=== PATIENT | male | born 1970 | race Two or more races ===

== ENCOUNTER 2021-05-12 05:05 | Emergency (ER) | payer BC ==
[~2021-05-12] VITALS: Ht 182.9 cm; Wt 86.3 kg
[2021-05-12] MEDS ORDERED: IV NORMAL SALINE 1000ML BAG 1,000 ML IV ONE (06:15)
--- NOTE | 2021-05-12 06:17 | PHYS DOC ---
Adult General Chief Complaint Chief Complaint: URINARY RETENTION HPI HPI Patient is a 51 year old male presenting to the emergency department for inability to urinate for the past day. Patient says that he has no known kidney problems and he drank at least 10 glasses of water yesterday but there has been no urine output. Patient says that he has lower midline abdominal pain with some nausea but no fevers chills vomiting back pain or testicle pain. He denies getting started on any new medications including [id number] medications. Patient is in no acute distress with normal vital signs. Review of Systems Review of Systems Constitutional: Denies fever or chills [] Eyes: Denies change in visual acuity, redness, or eye pain [] HENT: Denies nasal congestion or sore throat [] Respiratory: Denies cough or shortness of breath [] Cardiovascular: No additional information not addressed in HPI [] GI: + abdominal pain, nausea. No vomiting, bloody stools or diarrhea [] : Decreased urine output Musculoskeletal: Denies back pain or joint pain [] Integument: Denies rash or skin lesions [] Neurologic: Denies headache, focal weakness or sensory changes [] All other systems were reviewed and found to be within normal limits, except as documented in this note. Current Medications Current Medications Current Medications Medications (Trade) Dose Ordered Sig/Felicitas Start Time Stop Time Status Last Admin Dose Admin Info (CONTRAST GIVEN -- Rx MONITORING) 1 each PRN DAILY PRN 05/12/21 07:15 05/14/21 07:14 Iohexol (Omnipaque 300 Mg/ml) 75 ml 1X ONCE 05/12/21 07:15 05/12/21 07:16 DC 05/12/21 07:23 75 ML Lorazepam (Ativan Inj) 1 mg 1X ONCE 05/12/21 08:45 05/12/21 08:50 DC 05/12/21 08:58 1 MG Magnesium Sulfate 50 ml @ 25 mls/hr 1X ONCE 05/12/21 07:00 05/12/21 08:59 DC 05/12/21 07:23 25 MLS/HR Morphine Sulfate (Morphine Sulfate) 4 mg STK-MED ONCE 05/12/21 06:50 05/12/21 06:51 DC Ondansetron HCl (Zofran) 4 mg 1X ONCE 05/12/21 08:45 05/12/21 08:50 DC 05/12/21 08:59 4 MG Potassium Chloride/Sodium Chloride 1,000 ml @ 250 mls/hr Q4H ONCE 05/12/21 07:00 05/12/21 10:59 05/12/21 07:27 250 MLS/HR Potassium Chloride (Klor-Con) 40 meq 1X ONCE 05/12/21 07:00 05/12/21 07:07 DC 05/12/21 07:22 40 MEQ Sodium Chloride 1,000 ml @ 1,000 mls/hr 1X ONCE 05/12/21 06:15 05/12/21 07:14 DC 05/12/21 06:15 1,000 MLS/HR Allergies Allergies Allergies Coded Allergies Type Severity Reaction Last Updated Verified No Known Drug Allergies 05/12/21 No Physical Exam Physical Exam Constitutional: Well developed, well nourished, no acute distress, non-toxic appearance. [] HENT: Normocephalic, atraumatic, bilateral external ears normal, oropharynx moist, no oral exudates, nose normal. [] Eyes: PERRLA, EOMI, conjunctiva normal, no discharge. [] Neck: Normal range of motion, no tenderness, supple, no stridor. [] Cardiovascular:Heart rate regular rhythm, no murmur [] Lungs & Thorax: Bilateral breath sounds clear to auscultation [] Abdomen: Bowel sounds normal, soft, + suprapubic tenderness, no rebound or guarding Skin: Warm, dry, no erythema, no rash. [] Back: No tenderness, no CVA tenderness. [] Extremities: No tenderness, no cyanosis, no clubbing, ROM intact, no edema. [] Neurologic: Alert and oriented X 3, normal motor function, normal sensory function, no focal deficits noted. [] Current Patient Data Vital Signs Vital Signs Date Time Temp Pulse Resp B/P (MAP) Pulse Ox O2 Delivery O2 Flow Rate FiO2 05/12/21 08:59 18 95 05/12/21 08:20 85 196/93 (127) Room Air 05/12/21 05:15 98.1 98.1 Lab Values Laboratory Tests Test 05/12/21 05:55 05/12/21 07:44 White Blood Count 3.1 x10^3/uL (4.0-11.0) L Red Blood Count 4.83 x10^6/uL (4.30-5.70) Hemoglobin 15.0 g/dL (13.0-17.5) Hematocrit 44.1 % (39.0-53.0) Mean Corpuscular Volume 91 fL (79-100) Mean Corpuscular Hemoglobin 31 pg (25-35) Mean Corpuscular Hemoglobin Concent 34 g/dL (31-37) Red Cell Distribution Width 14.2 % (11.5-14.5) Platelet Count 272 x10^3/uL (140-400) Neutrophils (%) (Auto) 65 % (31-73) Lymphocytes (%) (Auto) 23 % (24-48) L Monocytes (%) (Auto) 7 % (0-9) Eosinophils (%) (Auto) 3 % (0-3) Basophils (%) (Auto) 2 % (0-3) Neutrophils # (Auto) 2.0 x10^3/uL (1.8-7.7) Lymphocytes # (Auto) 0.7 x10^3/uL (1.0-4.8) L Monocytes # (Auto) 0.2 x10^3/uL (0.0-1.1) Eosinophils # (Auto) 0.1 x10^3/uL (0.0-0.7) Basophils # (Auto) 0.1 x10^3/uL (0.0-0.2) Sodium Level 142 mmol/L (136-145) Potassium Level 2.5 mmol/L (3.5-5.1) *L Chloride Level 100 mmol/L (98-107) Carbon Dioxide Level 32 mmol/L (21-32) Anion Gap 10 (6-14) Blood Urea Nitrogen 5 mg/dL (8-26) L Creatinine 0.8 mg/dL (0.7-1.3) Estimated GFR (Cockcroft-Gault) 101.5 BUN/Creatinine Ratio 6 (6-20) Glucose Level 110 mg/dL (70-99) H Calcium Level 8.5 mg/dL (8.5-10.1) Total Bilirubin 0.5 mg/dL (0.2-1.0) Aspartate Amino Transferase (AST) 223 U/L (15-37) H Alanine Aminotransferase (ALT) 133 U/L (16-63) H Alkaline Phosphatase 95 U/L (46-116) Total Protein 8.0 g/dL (6.4-8.2) Albumin 3.2 g/dL (3.4-5.0) L Albumin/Globulin Ratio 0.7 (1.0-1.7) L Ethyl Alcohol Level 60 mg/dL (0-10) H Urine Collection Type Void Urine Color (Auto) Light yellow Urine Turbidity Clear Urine pH (Auto) 7.5 (<5.0-8.0) Urine Specific [place] 1.025 (1.000-1.030) Urine Protein (Auto) Negative mg/dL (Negative) Urine Glucose (Auto)(UA) Negative mg/dL (Negative) Urine Ketones (Auto) Negative mg/dL (Negative) Urine Blood (Auto) Negative (Negative) Urine Nitrite Negative (Negative) Urine Bilirubin (Auto) Negative (Negative) Urine Urobilinogen (Auto) Normal mg/dL (Normal) Urine Leukocyte Esterase (Auto) Negative (Negative) Urine RBC Occ /HPF (0-2) Urine WBC Occ /HPF (0-4) Urine Squamous Epithelial Cells Few /LPF Urine Bacteria 0 /HPF (0-FEW) Laboratory Tests 05/12/21 05:55 Laboratory Tests 05/12/21 05:55 EKG EKG [] Radiology/Procedures Radiology/Procedures [] Course & Med Decision Making Course & Med Decision Making I will check labs urinalysis start with an ultrasound to see if there is retention and reassess. Ultrasound only showed 85 cc of urine so labs and urinalysis and CT were all ordered. Patient was given IV and oral fluids and he was able to urinate 350 cc of urine with no difficulty I suspect his inability to urinate was more dehydration and possibly alcohol related. CT showed no acute surgical pathology but I did tell him that he has an abnormal mesorectal lipomatosis and will require follow-up for this. He says that he does have a primary care provider who writes his hypertension medications and that he will follow with them to see if further surgical consultation is necessary. Patient's repeat abdominal exam is benign with no focal tenderness rebound or guarding. He does admit that he drinks at least 7 shots daily and his last drink was last night and that he is shaky with hypertension but no tachycardia at this time. He says he has not been taking his lisinopril hydrochlorothiazide for some time and he does not give a reason why is he says he is not out but he will resume taking it. I told him about the transaminitis likely from alcohol as well as hypokalemia which is likely poor diet intake. At home the hypokalemia is low enough that admission is warranted to continue trending his electrolytes and treated for withdrawal. Patient says that he has no interest in being admitted and is not interested in quitting alcohol and he is requesting to be discharged. Patient was willing to let me replace his electrolytes partially here I told him he needs to take in a high potassium and magnesium diet at home and to cut down and trying to quit the alcohol as it is likely contributing to his pain nausea and other symptoms he presented with. Patient will be discharged in stable condition told to follow with his primary care provider within 3 to 4 days for recheck as he will need his electrolytes rechecked. I told him if he is having worsening pain fevers vomiting or other concerns he will need to come back to emergency department immediately for recheck. Patient aware and agreeable with plan and verbalized understanding of the above instructions.-Give his blood pressure medications here but he was not sure what exactly were or the doses and he said he rather just take it at home. Dragon Disclaimer Dragon Disclaimer This electronic medical record was generated, in whole or in part, using a voice recognition dictation system. Departure Departure Impression: Primary Impression: Alcohol abuse Additional Impressions: Transaminitis Hypokalemia Hypertension Decreased urine output Disposition: 01 HOME / SELF CARE / HOMELESS Condition: IMPROVED Referrals: UNKNOWN PCP NAME (PCP) Patient Instructions: Hypokalemia Additional Instructions: Take in a diet high in potassium and magnesium. Drink plenty of fluids and please get help quitting alcohol. Follow with a primary care provider within 3 to 4 days for recheck and come back to emergency department with any new or worsening symptoms. Problem Qualifiers MARCELINO PETIT DO May 12, 2021 06:17
[2021-05-12] MEDS ORDERED: ONDANSETRON PF 4 MG/2 ML VIAL. IVP ONE ×2 (06:45→08:45)
[2021-05-12 06:49] LABS: ALBUMIN 3.2 g/dL (3.4-5.0); ALBUMIN/GLOBULIN RATIO 0.7 (1.0-1.7); CALCIUM 8.5 mg/dL (8.5-10.1); CREATININE 0.8 mg/dL (0.7-1.3); GFR 101.5; TOTAL BILIRUBIN 0.5 mg/dL (0.2-1.0)
[2021-05-12] MEDS ORDERED: MORPHINE SULFATE 4 MG/ML INJ. ONE (06:50)
[2021-05-12] MEDS ORDERED: ONDANSETRON PF 4 MG/2 ML VIAL. ONE (06:50)
[2021-05-12] MEDS: MORPHINE SULFATE 4 MG/ML INJ. IV PRN ×2 (06:53→08:59)
[2021-05-12 06:54] LABS: POTASSIUM 2.5 mmol/L (3.5-5.1)
--- NOTE | 2021-05-12 06:56 | RAD ---
EXAM: US DPLX PELVIS LIMITED US 05/12/2021 6:11 AM CLINICAL INDICATION: Urinary retention, check bladder. COMPARISON: None TECHNIQUE: Limited grayscale ultrasound of the bladder. FINDINGS: Bladder volume is 85 mL. There is no focal wall thickening. IMPRESSION: Bladder volume of 85 mL. Electronically signed by: Lani Weiner MD (05/12/2021 6:54 AM) [facility]
[2021-05-12 06:58] LABS: BASO # 0.1 x10^3/uL (0.0-0.2); BASO % 2 % (0-3); EOS # 0.1 x10^3/uL (0.0-0.7); EOS % 3 % (0-3); HEMATOCRIT 44.1 % (39.0-53.0); LYMPH # 0.7 x10^3/uL (1.0-4.8); LYMPH % 23 % (24-48); MEAN CORPUSCULAR HEMOGLOBIN 31 pg (25-35); MEAN CORPUSCULAR HGB CONC 34 g/dL (31-37); MEAN CORPUSCULAR VOLUME 91 fL (79-100); MONO # 0.2 x10^3/uL (0.0-1.1); MONO % 7 % (0-9); NEUT % 65 % (31-73); PLATELET COUNT 272 x10^3/uL (140-400); RED BLOOD COUNT 4.83 x10^6/uL (4.30-5.70); RED CELL DISTRIBUTION WIDTH 14.2 % (11.5-14.5); WHITE BLOOD COUNT 3.1 x10^3/uL (4.0-11.0)
[2021-05-12] MEDS ORDERED: POTASSIUM CHLORIDE 20 MEQ TABLET.ER. PO ONE (07:00)
[2021-05-12] MEDS ORDERED: MAGNESIUM SULFATE 2GM 50 ML IV ONE (07:00)
[2021-05-12] MEDS ORDERED: POTASSIUM CL 40MEQ IN 0.9%NACL 1,000 ML IV ONE (07:00)
[2021-05-12] MEDS ORDERED: IOHEXOL 300 MG/ML 100ML VIAL. IV ONE (07:15)
[2021-05-12] MEDS ORDERED: CONTRAST GIVEN. MC PRN (07:15)
--- NOTE | 2021-05-12 07:46 | RAD ---
EXAMINATION: CT abdomen and pelvis with IV contrast. INDICATION:51 years, Male, diffuse lower abdominal pain, urinary retention. TECHNIQUE: Axial CT images of the abdomen and pelvis were obtained. Coronal and sagittal reformatted performed. COMPARISON: None. Exposure: One or more of the following individualized dose reduction techniques were utilized for thi s examination: 1. Automated exposure control 2. Adjustment of the mA and/or kV according to patient size 3. Use of iterative reconstruction technique. FINDINGS: LOWER CHEST: Unremarkable. ABDOMEN/PELVIS: Mild hepatomegaly with diffuse steatosis. Gallbladder, biliary ducts, spleen, pancreas and adrenal gl ands are unremarkable. No hydronephrosis or nephrolithiasis in either kidney. Subcentimeter hypodensi ty in the interpolar right kidney too small to characterize. Focal cortical scarring in the interpola r right kidney. Patent abdominal vasculatures. No lymphadenopathy. No pneumoperitoneum or ascites. There appears to b e a lipomatosis of the mesorectal fat extends inferiorly to the anal canal and superiorly to the uppe r pelvis causing mass effect upon the rectum with left and anterior displacement. It also causes ante rior displacement of the urinary bladder and prostate. Otherwise, no bowel obstruction. Normal append ix. Unremarkable urinary bladder and prostate. MUSCULOSKELETAL STRUCTURES: No acute osseous process or suspicious lesion. Degenerative changes at L5-S1. Coccygeal bones are abs ent. IMPRESSION: 1. No acute intra-abdominal findings. 2. There appears to be a lipomatosis of the mesorectal fat with mass effect and anterior displacemen t of the rectum, urinary bladder and prostate. 3. Mild hepatomegaly with diffuse steatosis. Electronically signed by: Chari Hercules MD (05/12/2021 7:44 AM) [facility]
[2021-05-12 08:19] LABS: BACTERIA,URINE 0 /HPF (0-FEW); RBC,URINE OCC /HPF (0-2); WBC,URINE OCC /HPF (0-4)
[2021-05-12] MEDS ORDERED: ONDA4TAB12 PO (10:08)
[2021-05-12 10:50] VITALS: BP 224/107
== END 2021-05-12 11:08 | disposition home or self-care (01) ==
LOC: ER 05:05
DX: F10.10 Alcohol abuse, uncomplicated (principal); Y90.3 Blood alcohol level of 60-79 mg/100 ml; R74.01 Elevation of levels of liver transaminase levels; E87.6 Hypokalemia; I10 Essential (primary) hypertension
CPT/HCPCS: 36415; 74177; 76857; 80053; 81001; 85025; 96361; 96365; 96366; 96375; 96376; 99285; G0480; J2060; J2270; J2405; J3475; J3480; J7030; Q9967